=== PATIENT | female | born 1965 | race Caucasian/White ===

== ENCOUNTER 2017-01-17 19:28 | Emergency (ER) | payer MEDICAID ==
[~2017-01-17] VITALS: Ht 147.3 cm; Wt 77.0 kg
[2017-01-17 19:31] VITALS: BP 141/78; PULSE 78; RESP 16; TEMP 98.5; O2SAT 98
[2017-01-17] MEDS ORDERED: AMOX875T PO (20:24)
[2017-01-17] MEDS ORDERED: VENTAER INH (20:24)
--- NOTE | 2017-01-17 20:24 | PD ---
HPI Chief Complaint: Cold / Flu Symptoms Time Seen by Provider: 20:21 Travel History International Travel<30 days: No Contact w/Intl Traveler<30days: No Traveled to known affect area: No History of Present Illness HPI Patient's complaining of sore throat, bilateral ear pain, and cough ongoing for 3 days. Patient denies anything making it better. States it progressively worse. Describes pain as burning scratching-like throat radiates to her ears. Pain is worse with swallowing. Patient denies anything making it better. Patient reports subjective fevers. States she's been coughing up greenish yellow phlegm. Denies any chest pain, shortness of breath, abdominal pain, nausea, vomiting, diarrhea, headache, or neck pain. PFSH Past Medical History Anxiety: Yes Depression: Yes Social History Alcohol Use: Yes Tobacco Use: Yes Substance Use: No Allergies-Medications (Allergen,Severity, Reaction): Coded Allergies: Azithromycin (Verified Allergy, Unknown, 01/17/17) Tetracycline (Verified Allergy, Unknown, 01/17/17) Reported Meds & Prescriptions Reported Meds & Active Scripts Active Ventolin Hfa 18 GM Inh (Albuterol Sulfate) 90 Mcg/Act Aer 2 Puff INH Q4H PRN Amoxicillin 875 Mg Tab 875 Mg PO BID 10 Days Review of Systems Except as stated in HPI: all other systems reviewed are Neg Physical Exam Narrative GENERAL: Well-developed, overly nourished, in no acute distress, and non-ill appearing. SKIN: Warm and dry. HEAD: Atraumatic. Normocephalic. EYES: Pupils equal and round. EOMI. No scleral icterus. No injection or drainage. ENT: No nasal bleeding or discharge. Mucous membranes pink and moist. Tympanic membranes pearly jean bilaterally. Posterior pharynx erythematous without exudate. Uvula is midline. No tenderness to the sinuses palpation. NECK: Trachea midline. No cervical lymphadenopathy. Supple. No nuclear rigidity. CARDIOVASCULAR: Regular rate and rhythm. No murmur appreciated. RESPIRATORY: No accessory muscle use. No respiratory distress. Clear to auscultation. Breath sounds equal bilaterally. MUSCULOSKELETAL: No obvious deformities. No clubbing. No cyanosis. No edema. Full range of motion. NEUROLOGICAL: Awake and alert. No obvious cranial nerve deficits. Motor grossly within normal limits. Normal speech. PSYCHIATRIC: Appropriate mood and affect; insight and judgment normal. Data Data Last Documented VS Vital Signs Date Time Temp Pulse Resp B/P Pulse Ox O2 Delivery O2 Flow Rate FiO2 01/17/17 20:32 Room Air 01/17/17 19:31 98.5 78 16 141/78 98 MDM Medical Decision Making Medical Screen Exam Complete: Yes Emergency Medical Condition: Yes Differential Diagnosis Strep pharyngitis, viral pharyngitis, upper respiratory infection, bronchitis, pneumonia, other Narrative Course Patient looks great, non-ill appearing. The patient is tolerating fluids and is well hydrated. Appears pharyngitis possibly Strep. No clinical evidence by history or evaluation to suspect meningitis and/or sepsis. There was no evidence to suggest peritonsillar abscess or retropharyngeal abscess. I discussed with the patient, diagnosis, plan of care and to follow up with the patients primary physician. The patient was given antibiotics. The patient was instructed to return if the worsens in anyway, especially if not tolerating fluids, increased pain or swelling, difficulty swallowing or breathing, or as needed. The patient agreed with plan. Patient in no obvious distress upon re-evaluation. Patient was asked if they wanted to speak to my attending, which the patient did not wish to do at this time. Any questions/concerns in reference to patient diagnosis/condition discussed and clarified prior to patient's discharge. Reinforced sheer importance of close follow up with patient's primary physician or primary care clinic. Instructed patient to return to ED immediately, if symptoms return/ worsen. Pt showed understanding of above instructions. Further instructions and recommendations were detailed in discharge paperwork. Pt ambulated without difficulty out of ED at discharge. Diagnosis Primary Impression: Pharyngitis Qualified Code: J02.9 - Pharyngitis, unspecified etiology Additional Impression: Cough Patient Instructions: Acute Cough (GEN), General Instructions, Pharyngitis (ED) Additional Instructions: Follow-up with your primary care physician in 3-5 days for reevaluation. Take all medication as prescribed. Use [id number] Tylenol and/or ibuprofen as needed for pain and/or fevers. Drink plenty of non-caffeinated and nonalcoholic fluids. Return to the emergency department if symptoms get worse. Med/Other Pt SpecificInfo: Prescription(s) given Scripts Albuterol 18 GM Inh (Ventolin Hfa 18 GM Inh)90 Mcg/Act Aer2 Puff INH Q4H PRN ( COUGH) #1 INHALER Ref 0 Prov:Kendra Vela MD 01/17/17 Amoxicillin 875 Mg [id number] Mg PO BID 10 Days Ref 0 Prov:Kendra Vela MD 01/17/17 Disposition: 01 DISCHARGE HOME Condition: Stable [place] Piedra Jan 17, 2017 20:24
== END 2017-01-17 20:56 | disposition home or self-care (01) ==
LOC: NEPB 19:28
DX: J02.9 Acute pharyngitis, unspecified (principal); R05 Cough; H92.03 Otalgia, bilateral; Z72.0 Tobacco use; Z86.59 Personal history of other mental and behavioral disorders
CPT/HCPCS: 99283